=== PATIENT | female | born 1955 | race Caucasian/White ===

== ENCOUNTER → 2017-03-03 | Day surgery (SDC) | payer OTHER ==
[~2017-03-03] MED LIST: ASPIRIN81 M1 PO; ATORVASTATIN CA10 MG PO; DIOVAN80 M1 PO; LISINOPRIL10 MG PO; MAXZIDE 37.5 M1 EACH PO; REQUIP0.25 MG PO; TOPROL XL PO
--- NOTE | ~2017-03-03 | OR ---
Unit #: [id number] #: [id number] Patient: JOSIAH STEPHENS [id number] [address] [place], [place] [address] [id number] O MR#: [id number] NAME: JOSIAH STEPHENS ROOM: Date of Procedure: 03/03/2017 Admission Date: 03/03/2017 Surgeon: Kyler Kitchen M.D. : 1955 Attending Physician: Kyler Kitchen M.D. Primary Care Physician: Vladimir Thompson M.D. OPERATIVE REPORT PRIMARY CARE PHYSICIAN Vladimir Thompson M.D. PREOPERATIVE DIAGNOSIS Colorectal cancer screening in an average-risk patient. PROCEDURES PERFORMED Colonoscopy and polypectomy. POSTOPERATIVE DIAGNOSES 1. The patient had four polyps, one each in the cecum and ascending colon and two in the sigmoid colon. The polyps ranged in size from 7 mm to 2 cm each. All the polyps were sessile and were removed using snare cautery polypectomy. 2. Mild sigmoid and descending colon diverticulosis. 3. Rest of the examination up to cecum was normal. The quality of the prep was excellent. RECOMMENDATIONS 1. Follow up the results of polyp histology. 2. Consider repeat colonoscopy in 5 years. SEDATION USED MAC. DESCRIPTION OF PROCEDURE Following detailed explanation of the potential risks and complications of a colonoscopy, namely perforation, bleeding, and complications related to sedation, the patient was brought to GI lab and laid in the left lateral decubitus position. A digital rectal examination was performed, which was normal. Lubricated tip of the Olympus video colonoscope was inserted through the anus and advanced under direct vision. The scope was advanced past rectosigmoid into descending colon. Multiple small to medium-sized diverticula were noted in this area. The scope tip was then navigated all the way up to cecum with visualization of the ileocecal valve and the appendiceal orifice. Preparation was excellent with good visualization and photodocumentation was obtained. Successive segments of the colonic mucosa were examined upon withdrawal. The patient was noted to have multiple polyps along the way. One each polyp was seen in the cecum and ascending colon. These were 1 cm and 2 cm respectively each. Both were removed using snare polypectomy. Both were retrieved and sent for histology. Excellent hemostasis was achieved and photodocumentation was Unit #: [id number] #: [id number] Patient: JOSIAH STEPHENS. Two additional polyps were noted in the sigmoid proximal and distal sigmoid colon respectively. These were 8 to 9 mm each and were both removed using snare polypectomy, retrieved and sent for histology. Excellent hemostasis was achieved and photodocumentation was obtained. No additional polyps were noted. Other than the scant diverticula on the left side, no other abnormalities were found. The patient did not have any hemorrhoids at the anal verge. The scope was then withdrawn and the patient returned to the recovery area. She tolerated the procedure without any postprocedure complications. Dictated by... Ricki Donato/og TD: 03/03/2017 12:26 JOB #: [id number] OPERATIVE REPORT Page 1 of 1 X Kyler Kitchen MD X PROCEDURE OPERATIVE NOTE
== END | disposition home or self-care (01) ==
LOC: COPS 08:19
DX: Z12.11 Encounter for screening for malignant neoplasm of colon (principal); D12.0 Benign neoplasm of cecum; D12.2 Benign neoplasm of ascending colon; D12.5 Benign neoplasm of sigmoid colon; K57.30 Diverticulosis of large intestine without perforation or abscess without bleeding; F17.210 Nicotine dependence, cigarettes, uncomplicated; G47.30 Sleep apnea, unspecified; I10 Essential (primary) hypertension; E78.5 Hyperlipidemia, unspecified; Z90.710 Acquired absence of both cervix and uterus; Z98.890 Other specified postprocedural states; Z79.82 Long term (current) use of aspirin; Z79.899 Other long term (current) drug therapy; Z99.81 Dependence on supplemental oxygen
CPT/HCPCS: 88305; J2250

== ENCOUNTER → 2017-03-20 | Outpatient (CLI) | payer OTHER ==
--- NOTE | ~2017-03-20 | CT57 ---
[facility] A Service of [facility] RADIOLOGY TEXT RESULTS PATIENT: JOSIAH STEPHENS LOCATION: [facility] : 55 UNIT #: [id number] AGE: [address]: Miguel Chris MD SEX: F ORDER DR: [id number] [id number] [facility]. [place], [place] [address] [id number] O MR#: [id number] Acc #: [id number] NAME: JOSIAH STEPHENS : 1955 SEX: F STUDY DATE/TIME: 03/20/2017 12:18 UNIT: [facility] ROOM: STUDY DESCRIPTION: CT Chest Wo Cont Attending Physician: Miguel Chris M.D. Referring Physician: Miguel Chris M.D. Ordering Physician: Miguel Chris M.D. Primary Care Physician: Vladimir Thompson M.D. MEDICAL IMAGING REPORT This report is preliminary unless electronic signature is present EXAM CT of the chest without contrast INDICATIONS Prior cough for 1-2 years. Tobacco abuse. TECHNIQUE CT of the chest was performed without contrast. Coronal and sagittal reformatted images were obtained. This CT exam was performed with one or more of the following radiation dose reduction techniques: automatic exposure control, adjustment of mA and/or kV according to patient size, and iterative reconstruction. COMPARISON STUDIES No comparisons are available. FINDINGS Calcified granulomas in the posterior left upper lobe. Adjacent tree-in-bud nodularity. No suspicious pulmonary nodule. No dense airspace consolidation. Calcified left hilar lymph nodes. No suspicious lymphadenopathy. No pleural effusion. Limited imaging of the upper abdomen is unremarkable. Bone windows are unremarkable. IMPRESSION 1. There are multiple calcified granulomas in the posterior left upper lobe. 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 2. No dense airspace consolidation or suspicious pulmonary nodule. [facility] A Service of [facility] & [facility] RADIOLOGY TEXT RESULTS PATIENT: JOSIAH STEPHENS LOCATION: [facility] : 55 UNIT #: [id number] AGE: [address]: Miguel Chris MD SEX: F ORDER DR: Dictated by... Jose Wolf M.D. THIS IS AN ELECTRONICALLY VERIFIED REPORT Jose Wolf M.D. at 03/21/2017 7:36 AM ARS/pcl TD: 03/20/2017 15:36 JOB #: [id number] MEDICAL IMAGING REPORT Page 1 of 1 COPY
--- NOTE | ~2017-03-20 | US11 ---
[facility] A Service of [facility] & [facility] RADIOLOGY TEXT RESULTS PATIENT: JOSIAH STEPHENS LOCATION: [facility] : 55 UNIT #: [id number] AGE: [address]: Miguel Chris MD SEX: F ORDER DR: [id number] [facility] [address] [place], [place] [address] [id number] O MR#: [id number] Acc #: [id number] NAME: JOSIAH STEPHENS : 1955 SEX: F STUDY DATE/TIME: 03/20/2017 10:53 UNIT: [facility] ROOM: STUDY DESCRIPTION: US Aorta Duplex Complete Attending Physician: Miguel Chris M.D. Referring Physician: Miguel Chris M.D. Ordering Physician: Miguel Chris M.D. Primary Care Physician: Vladimir Thompson M.D. MEDICAL IMAGING REPORT This report is preliminary unless electronic signature is present EXAM AAA screening, 03/20/2017 HISTORY Smoking x30 years. FINDINGS The proximal aorta has a velocity of 107 cm/sec, with a triphasic flow. The mid aorta 119 cm/sec, with triphasic flow, and distal aorta 59 cm/sec, with triphasic flow. The proximal aorta measures 1.9 x 2.3 cm, the mid aorta measures 2.1 x 2.0 cm, and the distal aorta measures 2.0 x 1.8 cm. The right common iliac artery has a velocity of 135 cm/sec, with triphasic flow; the left common iliac artery has a velocity of 126 cm/sec with triphasic flow. The right common iliac artery measures 1.4 x 1.1 cm. The left common iliac artery measures 1.2 x 0.9 cm. IMPRESSION There is no evidence of an infrarenal AAA on today's exam. Dictated by... Rubin Courtney M.D. THIS IS AN ELECTRONICALLY VERIFIED REPORT Rubin Courtney M.D. at 03/25/2017 8:56 AM Paulino TD: 03/20/2017 15:16 JOB #: [id number] MEDICAL IMAGING REPORT Page 1 of 1 COPY
== END | disposition home or self-care (01) ==
LOC: CGUS 10:20
DX: R06.09 Other forms of dyspnea (principal); J84.10 Pulmonary fibrosis, unspecified; J98.4 Other disorders of lung; Z72.0 Tobacco use
CPT/HCPCS: 71250; 93306; 93978